=== PATIENT | male | born 1935 | race Caucasian/White ===

== ENCOUNTER 2019-05-01 05:53 | Day surgery (SDC) | payer OTHER ==
[2019-04-22 14:20] VITALS: BMI 30.5
[2019-05-01] MEDS ORDERED: LIDOCAINE HCL 2% (20ML MULTI-DOSE VIAL) NR ONE (07:21)
[2019-05-01] MEDS ORDERED: SUCCINYLCHOLINE CHLORIDE 200 MG/10 ML VIAL ONE (07:22)
[2019-05-01] MEDS ORDERED: SODIUM CHLORIDE 0.9% P/F 10 ML VIAL IJ ONE (07:22)
[2019-05-01] MEDS ORDERED: LIDOCAINE HCL/PF 2% SDV 5ML VIAL ONE (07:22)
[2019-05-01] MEDS ORDERED: ceFAZolin SODIUM 1 GM VIAL ONE (07:22)
[2019-05-01] MEDS ORDERED: PROPOFOL 20 ML ONE (07:22)
[2019-05-01] MEDS ORDERED: LIDOCAINE HCL 2% (50ML VIAL) INF ONE (07:45)
[2019-05-01 08:17] VITALS: TEMP 97.3
[2019-05-01 08:50] VITALS: BP 122/67; PULSE 76
--- NOTE | 2019-05-03 09:12 | OP ---
DATE OF OPERATION: 05/01/2019 PREOPERATIVE DIAGNOSIS: Right carpal tunnel syndrome. POSTOPERATIVE DIAGNOSIS: Right carpal tunnel syndrome. OPERATIVE PROCEDURE: Right carpal tunnel release. ANESTHESIA: Local with sedation. COMPLICATIONS: None. ESTIMATED BLOOD LOSS: Minimal. INDICATION FOR PROCEDURE: The patient is an 83-year-old male with the above finding, indicated for operative treatment. Risks, benefits, alternatives were discussed with the patient at length. Proper informed consent was obtained. PROCEDURE IN DETAIL: After proper identification of the patient and the correct operative site patient brought to the operating room and placed supine on the table. All prominences were well padded. Sedation and local anesthesia were given. Right upper extremity was prepped and draped in usual sterile fashion. Well-padded tourniquet was placed with a sterile prep. Esmarch bandage to exsanguinate the right upper extremity. Tourniquet was inflated to 250 mmHg. A longitudinal incision made over the proximal aspect of the palm. Incision was taken sharply through the skin, with blunt and sharp dissection through the subcutaneous tissue. Palmar fascia divided longitudinally. Transverse carpal ligament along with the distal 4 cm of antebrachial fascia was divided longitudinally under direct visualization with loupe magnification. This provided complete release of the median nerve at the wrist. Wound was irrigated with saline and repaired with a 5-0 fast-absorbing plain gut suture. Sterile dressings were applied. Patient brought to recovery room in stable condition, having tolerated the procedure well. Kelby [id number]
== END 2019-05-01 08:47 | disposition home or self-care (01) ==
LOC: FASU 05:53
PROVIDERS: ATTEND Orthopaedic Surgery Hand Surgery
PROC: 01N50ZZ Release Median Nerve, Open Approach (ICD-10-PCS; principal; 2019-05-01 07:45)
DX: G56.01 Carpal tunnel syndrome, right upper limb (principal)